=== PATIENT | male | born 1990 | race African-American/Black ===

== ENCOUNTER 2025-03-06 10:05 | Emergency (ER) | payer MEDICAID ==
[~2025-03-06] VITALS: Ht 165.1 cm; Wt 96.0 kg
[2025-03-06] MEDS: PREDNISONE 20MG TABLET PO STA (11:22)
[2025-03-06 11:48] LABS: CLARITY URINE CLEAR (CLEAR); COLOR URINE YELLOW (YELLOW); GLUCOSE URINE NEGATIVE (NEGATIVE); KETONES URINE TRACE (NEGATIVE); LEUKOCYTE ESTERASE URINE NEGATIVE (NEGATIVE); NITRITE URINE NEGATIVE (NEGATIVE); OCCULT BLOOD URINE NEGATIVE (NEGATIVE); PH URINE 5.5 (4.5-8.0); PROTEIN URINE 1+ (NEGATIVE); SPECIFIC GRAVITY URINE 1.024 (1.005-1.030)
[2025-03-06 11:56] LABS: BACTERIA URINE NONE SEEN; MUCUS URINE 1+ /lpf (NONE/TRACE); RBC URINE 0-2 /hpf (0-2); SQUAMOUS EPITHELIAL CELL URINE 1+ /lpf (RARE/1+); WBC URINE 0-2 /hpf (0-2); YEAST URINE NONE SEEN
[2025-03-06] MEDS: ALBUTEROL (0.083%) 2.5MG/3ML NEB HHN STA ×2 (11:57→14:11)
[2025-03-06] MEDS: IPRATROPIUM BROMIDE (0.02%) 0.5MG/2.5ML NEB HHN STA ×2 (11:57→14:11)
[2025-03-06 11:58] VITALS: PULSE 99; RESP 16; O2SAT 96
[2025-03-06 12:16] LABS: BASOPHILS % 0.6 % (0.0-2.0); EOSINOPHILS % 0.8 % (0.0-5.0); HEMATOCRIT. 45.1 % (42.0-52.0); HEMOGLOBIN. 14.9 g/dL (14.0-18.0); LYMPHOCYTES % 27.8 % (20.0-50.0); MEAN CORPUSCULAR HEMOGLOBIN 27.4 pg (28.0-32.0); MEAN CORPUSCULAR HGB CONC 33.1 g/dL (31.0-37.0); MEAN CORPUSCULAR VOLUME 82.8 fL (80.0-94.0); MEAN PLATELET VOLUME 7.7 fl (7.4-10.4); MONOCYTES % 12.2 % (2.0-8.0); NEUTROPHILS % 58.6 % (40.0-76.0); PLATELET 242 x1000/uL (130-400); RED BLOOD CELL COUNT 5.45 mill/uL (4.7-6.1); RED CELL DISTRIBUTION WIDTH 13.7 % (11.6-14.6); WHITE BLOOD COUNT 5.6 x1000/uL (4.5-11.0)
[2025-03-06 12:27] LABS: CARBON DIOXIDE 28 mEq/L (21-32); CHLORIDE 102 mEq/L (98-107); POTASSIUM 3.5 mEq/L (3.5-5.1); SODIUM 139 mEq/L (136-145)
[2025-03-06 12:28] LABS: D-DIMER 0.44 mg/L FEU (<0.50); PROTHROMBIN TIME 10.8 sec (9.6-11.0)
[2025-03-06 12:32] LABS: CREATININE 1.4 mg/dL (0.6-1.3)
[2025-03-06 12:33] LABS: GLUCOSE 108 mg/dL (70-105); UREA NITROGEN BLOOD 8 mg/dL (9-23)
[2025-03-06 12:34] LABS: ALANINE AMINOTRANSFERASE 28 IU/L (10-49); ALBUMIN 4.7 g/dL (3.2-4.8); ASPARTATE AMINOTRANSFERASE 25 IU/L (<34)
[2025-03-06 12:35] LABS: BILIRUBIN DIRECT 0.2 mg/dL (<=3.0); BILIRUBIN TOTAL 0.8 mg/dL (0.1-1.0); PROTEIN TOTAL 7.5 g/dL (6.0-8.3)
[2025-03-06 12:36] LABS: TROPONIN I HIGH SENSITIVITY < 4 ng/L (3.0-53)
[2025-03-06] MEDS: LIDOCAINE 5% PATCH TOP SCH (13:37)
[2025-03-06] MEDS ORDERED: LIDO-53 TP (13:38)
[2025-03-06 14:11] VITALS: PULSE 95; RESP 18; O2SAT 93
[2025-03-06] MEDS ORDERED: BENZ200C52 MT (15:19)
[2025-03-06 16:00] VITALS: BP 115/70; PULSE 102; RESP 18; TEMP 36.7; O2SAT 94
== END 2025-03-06 16:18 | disposition home or self-care (01) ==
LOC: ER 10:05
DX: M94.0 Chondrocostal junction syndrome [Tietze] (principal); R07.81 Pleurodynia; J45.909 Unspecified asthma, uncomplicated
CPT/HCPCS: 80076; 80048; 81003; 83880; 83690; 85025; 85379; 85610; 84484; 36415; 71045; 94640; 93005; 98960; 99285; J7512; Z7610 ×4; 94070; 94664